=== PATIENT | female | born 1980 | race Caucasian/White ===

== ENCOUNTER 2017-01-28 17:16 | Emergency (ER) | payer BC ==
--- NOTE | 2017-01-28 18:52 | EDM.PDOC ---
ED HPI EYE COMPLAINT - General Chief Complaint: Eye Problems Stated Complaint: SWOLLEN & PAINFUL EYE, HEADACHE Time Seen by Provider: 01/28/17 17:45 Source: Reports: Patient, Family History Limitations: Reports: No limitations - History of Present Illness INITIAL COMMENTS - FREE TEXT/NARRATIVE: 36-year-old female who has had an ongoing difficulty with an inflamed infected tear duct on the left eye and despite being on clindamycin is now having increased pain around the eye, into the left ear and experiencing a headache. She has no fever or chills. She is developing some pain with movement of the left eye. Severity: mild - Related Data Allergies/ADRs: Allergies No Known Allergies Allergy (Verified 01/28/17 17:32) Home Meds: Ambulatory Orders Medication Instructions Recorded Confirmed Venlafaxine [Effexor XR] 150 mg PO DAILY 01/28/17 01/28/17 Past Medical History - Past Health History Medical/Surgical History: Denies Medical/Surgical History Social & Family History - Tobacco Use Smoking Status *Q: Current Every Day Smoker Years of Tobacco use: 20 Packs/Tins Daily: 0.5 - Caffeine Use Caffeine Use: Reports: Coffee - Recreational Drug Use Recreational Drug Use: No ED ROS GENERAL - Review of Systems Review Of Systems: See Below Constitutional: Denies: fever, chills HEENT: Reports: Ear pain, Eye pain, Other (Inflamed swollen left tear duct) Respiratory: Denies: shortness of breath, cough GI/Abdominal: Denies: Abdominal pain Musculoskeletal: Reports: no symptoms Neurological: Reports: headache ED EXAM GENERAL W FULL EYE - Physical Exam Exam: See Below Exam Limited By: No limitations General Appearance: alert, no apparent distress (Looks uncomfortable but is not distressed) Eye Exam: left eye: other (Patient does have a fairly significantly swollen tear duct under the medial lower left eye, tender to palpation), bilateral eye: EOMI, PERRL Extraocular Movements: bilateral: intact Ears: normal TMs Head: atraumatic Respiratory/Chest: no respiratory distress Course - Vital Signs Last Recorded V/S: Last Vital Signs Temp 97.5 F 01/28/17 17:34 Pulse 82 01/28/17 20:03 Resp 16 01/28/17 20:03 BP 117/86 01/28/17 20:03 Pulse Ox 98 01/28/17 20:03 - Orders/Labs/Meds Orders: Active Orders 24 hr Category Date Time Status Orbit Sella PF IAC w Cont [CT] Stat Exams 01/28/17 19:24 Taken CULTURE WOUND + SMEAR [RM] Stat Lab 01/28/17 21:25 Results Labs: Laboratory Tests 01/28/17 01/28/17 Range/Units 18:00 18:00 WBC 7.3 (4.5-11.0) K/uL RBC 4.31 (3.30-5.50) M/uL Hgb 13.6 (12.0-15.0) g/dL Hct 39.8 (36.0-48.0) % MCV 92 (80-98) fL MCH 32 H (27-31) pg MCHC 34 (32-36) % Plt Count 271 (150-400) K/uL Neut % (Auto) 53 (36-66) % Lymph % (Auto) 37 (24-44) % Gaines % (Auto) 9 H (2-6) % Eos % (Auto) 1 L (2-4) % Baso % (Auto) 1 (0-1) % Sodium 142 (140-148) mmol/L Potassium 4.0 (3.6-5.2) mmol/L Chloride 106 (100-108) mmol/L Carbon Dioxide 28 (21-32) mmol/L Anion Gap 8.0 (5.0-14.0) mmol/L BUN 12 (7-18) mg/dL Creatinine 0.7 (0.6-1.0) mg/dL Est Cr Clr Drug Dosing 107.40 mL/min Estimated GFR (MDRD) > 60 (>60) Glucose 97 (74-106) mg/dL Calcium 8.7 (8.5-10.1) mg/dL Meds: Medications Discontinued Medications Generic Name Dose Route Start Last Admin Trade Name Freq PRN Reason Stop Dose Admin Sodium Chloride 75 mls @ 3 mls/sec 01/28/17 20:00 01/28/17 20:13 Normal Saline IV 3 mls/sec ASDIRECTED VALERIY Administration Iopamidol 80 ml 01/28/17 19:51 01/28/17 20:13 Isovue-300 (61%) IV 01/29/17 19:52 80 ml . DIRECTED PRN Administration RADIOLOGY EXAM Ketorolac Tromethamine 30 mg 01/28/17 19:56 01/28/17 20:00 Toradol IVPUSH 01/28/17 19:57 30 mg ONETIME ONE Administration Methylprednisolone Sodium Succinate 40 mg 01/28/17 21:25 01/28/17 21:36 Solu-Medrol IVPUSH 01/28/17 21:26 40 mg ONETIME ONE Administration Sodium Chloride 10 ml 01/28/17 19:51 01/28/17 20:13 Saline Flush FLUSH 10 ml ONETIME PRN Administration per radiology protocol - Re-Assessments/Exams Free Text/Narrative Re-Assessment/Exam: 01/28/17 19:06 CBC and BMP were obtained, followed by a head CT with IV contrast. Labs were normal. Patient was still complaining of a significant headache so was given 30 mg of Toradol IV. 01/28/17 21:22 CT showed no periorbital involvement. The small abscess was then sterilizing with alcohol, a small incision with a #11 scalpel was made and purulent material was expelled. A culture was obtained. Patient can continue her current antibiotics. 01/28/17 21:25 Prior to discharge patient was given 40 mg of Solu-Medrol IV for the inflammatory nature of the wound. Encouraged to continue with warm compresses. Departure - Departure Time of Disposition: 22:15 Disposition: Home, Self-Care 01 Condition: good Clinical Impression: Abscess of eyelid left eye, unspecified eyelid Instructions: Abscess, [id number] Referrals: Tyler Canas MD [Primary Care Provider] - Forms: ED Department Discharge Care Plan Goals: Continue with moist compresses, warm, antibiotics and anti-inflammatories such as ibuprofen or naproxen as needed. - My Orders Last 24 Hours: My Active Orders 01/28/17 19:24 Orbit Sella PF IAC w Cont [CT] Stat 01/28/17 21:25 CULTURE WOUND + SMEAR [RM] Stat - Assessment/Plan Last 24 Hours: My Active Orders 01/28/17 19:24 Orbit Sella PF IAC w Cont [CT] Stat 01/28/17 21:25 CULTURE WOUND + SMEAR [RM] Stat
[2017-01-28] MEDS ORDERED: Ketorolac 60 MG/2 ML SDV IM ONE (19:39)
[2017-01-28] MEDS ORDERED: Sodium Chloride 0.9% 10 ML Syringe FLUSH PRN (19:51)
[2017-01-28] MEDS ORDERED: Iopamidol 612 MG/ML 100 ML Bottle IV PRN (19:51)
[2017-01-28] MEDS ORDERED: Ketorolac 30 MG/ML SDV IVPUSH ONE (19:56)
[2017-01-28] MEDS ORDERED: Sodium Chloride 0.9% 75 ML IV SCH (20:00)
[2017-01-28 20:03] VITALS: BP 117/86
[2017-01-28] MEDS ORDERED: methylPREDNISolone Sodium Succinate 40 MG/1 ML SDV IVPUSH ONE (21:25)
== END 2017-01-28 21:40 | disposition home or self-care (01) ==
LOC: JP.ED 17:16
DX: H00.036 Abscess of eyelid left eye, unspecified eyelid (principal); F17.210 Nicotine dependence, cigarettes, uncomplicated
CPT/HCPCS: 36415; 70481; 80048; 85025; 87070; 87205; 96361; 96372; 96374; 96375; 99284; J1885; J2920; J7030; J7050; Q9967